=== PATIENT | female | born 1945 | race Caucasian/White ===

== ENCOUNTER 2017-01-17 14:29 | Inpatient (IN) | payer MEDICARE, OTHER ==
[2017-01-17 15:56] LABS: O2 DELIVERY DEVICE ROOM AIR; PCO2 ARTERIAL 36 mmHG (35-45); PO2 ARTERIAL 55 mmHG (80-105)
[2017-01-17 15:57] LABS: BASE EXCESS ARTERIAL -1 mmol/L (-2-3); BICARBONATE,ARTERIAL 23.7 mmol/L (22-26); O2 SATURATION ARTERIAL 89 % (95-98)
[2017-01-17] MEDS ORDERED: Sodium Chloride 0.9% 5 ML Syringe FLUSH PRN (18:26)
[2017-01-17] MEDS ORDERED: Ondansetron 4 MG/2 ML SDV IV PRN (18:26)
[2017-01-17] MEDS ORDERED: Non-Formulary Medication 1 Each (Halobetasol Propionate [Ultravate] 1 APPLIC) TP PRN (18:30)
[2017-01-17] MEDS ORDERED: Acetaminophen 500 MG Tab PO PRN (18:30)
[2017-01-17] MEDS ORDERED: Sodium Chloride 0.9% 1,000 ML IV SCH (18:30)
[2017-01-17] MEDS ORDERED: Codeine/Promethazine 10-6.25 MG/5 ML Syrup 5 ML UD Cup PO PRN (19:00)
[2017-01-17] MEDS: Albuterol/Ipratropium 3.0-0.5 MG/3 ML Neb Soln NEB SCH ×2 (19:44→20:13)
[2017-01-17] MEDS: Levofloxacin/Dextrose 5%-Water 500 MG in Premix Bag 1 BAG IV SCH (20:03)
[2017-01-17] MEDS: Amitriptyline 10 MG Tab PO SCH (20:12)
[2017-01-17] MEDS: Aspirin 81 MG Tab.EC PO SCH (20:12)
[2017-01-17] MEDS: guaiFENesin 600 MG Tab.ER PO SCH (20:12)
[2017-01-17] MEDS: Levofloxacin/Dextrose 5%-Water 250 MG in Premix Bag 1 BAG IV SCH (21:24)
[2017-01-17] MEDS ORDERED: Omeprazole 20 MG Cap.CR ONE (23:07)
[2017-01-18] MEDS: Albuterol/Ipratropium 3.0-0.5 MG/3 ML Neb Soln NEB SCH ×6 (02:32→21:16)
[2017-01-18] MEDS: Omeprazole 20 MG Cap.CR PO SCH ×2 (06:07→16:33)
[2017-01-18 07:57] LABS: CHLORIDE,CL 110 mmol/L (98-115); SODIUM,NA 146 mmol/L (136-145)
[2017-01-18] MEDS ORDERED: predniSONE 10 MG Tab PO SCH (09:00)
[2017-01-18] MEDS: Aspirin 81 MG Tab.EC PO SCH (09:22)
[2017-01-18] MEDS: buPROPion 150 MG Tab.SR PO SCH ×2 (09:22→21:12)
[2017-01-18] MEDS: Cetirizine 10 MG Tab PO SCH (09:23)
[2017-01-18] MEDS: Montelukast 10 MG Tab PO SCH (09:23)
[2017-01-18] MEDS: guaiFENesin 600 MG Tab.ER PO SCH ×2 (09:23→21:13)
[2017-01-18] MEDS: predniSONE 20 MG Tab PO SCH ×2 (09:23→21:14)
--- NOTE | 2017-01-18 11:14 | PCM.PN ---
- General Info Date of Service: 01/18/17 Functional Status: Reports: pain controlled, tolerating diet, ambulating, urinating. Denies: new symptoms - Review of Systems General: Reports: Chills. Denies: Fever HEENT: Reports: glasses. Denies: headaches Pulmonary: Reports: shortness of breath (improved), cough, sputum Cardiovascular: Reports: Dyspnea on Exertion. Denies: Chest Pain Skin: Reports: other (flushed facial cheeks) Neurological: Denies: Headache - Patient Data Vitals - most recent: Last Vital Signs Temp 98.6 F 01/18/17 06:49 Pulse 86 01/18/17 06:49 Resp 16 01/18/17 06:49 BP 116/68 01/18/17 06:49 Pulse Ox 95 01/18/17 06:49 Weight - most recent: 176 lb 4.8 oz I&O - last 24 hours: Intake & Output 01/17/17 01/18/17 01/18/17 22:59 06:59 14:59 Intake Total 891 884 Balance 891 884 Lab Results last 24 hrs: Laboratory Results - last 24 hr 01/17/17 01/17/17 01/18/17 Range/Units 15:50 18:50 07:25 WBC (5.0-10.0) 10^3/uL RBC (3.80-5.50) 10^6/uL Hgb (12.0-16.0) g/dL Hct (37.0-47.0) % MCV (82.0-92.0) fL MCH (27.0-31.0) pg MCHC (32.0-36.0) g/dL RDW (11.5-14.5) % Plt Count (150-300) 10^3/uL MPV (7.4-10.4) fL Neut % (Auto) (50.0-70.0) % Lymph % (Auto) (20.0-40.0) % Luna % (Auto) (2.0-8.0) % Eos % (Auto) (1.0-3.0) % Baso % (Auto) (0.0-1.0) % Neut # (Auto) (2.5-7.0) 10^3/uL Lymph # (Auto) (1.0-4.0) 10^3/uL Luna # (Auto) (0.1-0.8) 10^3/uL Eos # (Auto) (0.1-0.3) 10^3/uL Baso # (Auto) (0.0-0.1) 10^3/uL ABG pH 7.43 (7.35-7.45) ABG pCO2 36 (35-45) mmHG ABG pO2 55 L* (80-105) mmHG ABG HCO3 23.7 (22-26) mmol/L ABG Total CO2 25 (23-27) mmol/L ABG O2 Saturation 89 L (95-98) % ABG Base Excess -1 (-2-3) mmol/L O2 Delivery Device Room air Sodium 146 H (136-145) mmol/L Potassium 3.9 (3.3-5.3) mmol/L Chloride 110 (98-115) mmol/L Carbon Dioxide 30.0 (21.0-32.0) mmol/L BUN 11 (6-25) mg/dL Creatinine 0.69 (0.51-1.17) mg/dL Est Cr Clr Drug Dosing 67.29 mL/min Estimated GFR (MDRD) > 60 mL/min Glucose 86 (70-110) mg/dL Calcium 8.5 L (8.7-10.3) mg/dL Troponin I 0.06 (0.00-0.070) ng/mL 01/18/17 Range/Units 07:25 WBC 11.5 H (5.0-10.0) 10^3/uL RBC 4.30 (3.80-5.50) 10^6/uL Hgb 13.6 (12.0-16.0) g/dL Hct 40.4 (37.0-47.0) % MCV 94.0 H (82.0-92.0) fL MCH 31.8 H (27.0-31.0) pg MCHC 33.8 (32.0-36.0) g/dL RDW 13.1 (11.5-14.5) % Plt Count 299 (150-300) 10^3/uL MPV 7.3 L (7.4-10.4) fL Neut % (Auto) 73.7 H (50.0-70.0) % Lymph % (Auto) 18.0 L (20.0-40.0) % Luna % (Auto) 7.5 (2.0-8.0) % Eos % (Auto) 0.4 L (1.0-3.0) % Baso % (Auto) 0.4 (0.0-1.0) % Neut # (Auto) 8.5 H (2.5-7.0) 10^3/uL Lymph # (Auto) 2.1 (1.0-4.0) 10^3/uL Luna # (Auto) 0.9 H (0.1-0.8) 10^3/uL Eos # (Auto) 0.0 L (0.1-0.3) 10^3/uL Baso # (Auto) 0.0 (0.0-0.1) 10^3/uL ABG pH (7.35-7.45) ABG pCO2 (35-45) mmHG ABG pO2 (80-105) mmHG ABG HCO3 (22-26) mmol/L ABG Total CO2 (23-27) mmol/L ABG O2 Saturation (95-98) % ABG Base Excess (-2-3) mmol/L O2 Delivery Device Sodium (136-145) mmol/L Potassium (3.3-5.3) mmol/L Chloride (98-115) mmol/L Carbon Dioxide (21.0-32.0) mmol/L BUN (6-25) mg/dL Creatinine (0.51-1.17) mg/dL Est Cr Clr Drug Dosing mL/min Estimated GFR (MDRD) mL/min Glucose (70-110) mg/dL Calcium (8.7-10.3) mg/dL Troponin I (0.00-0.070) ng/mL Constantin Results last 24 hrs: Microbiology 01/17/17 15:50 Gram Stain - Final Sputum - Expectorated Sputum Culture - Preliminary No Growth 01/17/17 21:30 Influenza Type A Antigen Screen - Final Nasopharyngeal Swab - Nare, Unspecified NEGATIVE INFLUENZA A VIRUS AG Influenza Type B Antigen Screen - Final NEGATIVE INFLUENZA B VIRUS AG Med Orders - Current: Current Medications Acetaminophen (Tylenol Extra Strength) 500 mg PO DAILY PRN PRN Reason: Pain Albuterol/Ipratropium (Duoneb 3.0-0.5 Mg/3 Ml) 3 ml NEB Q4HRRT [facility] Last Admin: 01/18/17 09:21 Dose: 3 ml Amitriptyline HCl (Elavil) 10 mg PO BEDTIME [facility] Last Admin: 01/17/17 20:12 Dose: 10 mg Aspirin (Halfprin) 81 mg PO BRK [facility] Last Admin: 01/18/17 09:22 Dose: 81 mg Bupropion HCl (Wellbutrin Sr) 150 mg PO BID [facility] Last Admin: 01/18/17 09:22 Dose: 150 mg Cetirizine HCl (Zyrtec) 10 mg PO DAILY [facility] Last Admin: 01/18/17 09:23 Dose: 10 mg Guaifenesin (Mucinex) 600 mg PO BID [facility] Last Admin: 01/18/17 09:23 Dose: 600 mg Sodium Chloride (Normal Saline) 1,000 mls @ 80 mls/hr IV ASDIRECTED [facility] Last Admin: 01/17/17 20:03 Dose: 80 mls/hr Levofloxacin/Dextrose 250 mg/ (Premix) 50 mls @ 50 mls/hr IV Q24H [facility] Last Admin: 01/17/17 21:24 Dose: 50 mls/hr Levofloxacin/Dextrose 500 mg/ (Premix) 100 mls @ 100 mls/hr IV Q24H [facility] Last Admin: 01/17/17 20:03 Dose: 100 mls/hr Montelukast Sodium (Singulair) 10 mg PO DAILY [facility] Last Admin: 01/18/17 09:23 Dose: 10 mg Non-Formulary Medication (Halobetasol Propionate [Ultravate]) 1 applic TP BID PRN PRN Reason: Rash Omeprazole (Omeprazole) 40 mg PO BIDAC [facility] Last Admin: 01/18/17 06:07 Dose: 40 mg Ondansetron HCl (Zofran) 4 mg IV Q4H PRN PRN Reason: Nausea/Vomiting Prednisone (Prednisone) 40 mg PO BID [facility] Last Admin: 01/18/17 09:23 Dose: 40 mg Promethazine HCl/Codeine (Phenergan With Codeine) 5 ml PO Q4HR PRN PRN Reason: Cough Sodium Chloride (Syrex Flush) 5 ml FLUSH Q8HR PRN PRN Reason: Keep Vein Open Discontinued Medications Omeprazole (Omeprazole) Confirm Administered Dose 40 mg .ROUTE .[place]shine-MED ONE Stop: 01/17/17 23:08 Last Admin: 01/17/17 23:18 Dose: Not Given Prednisone (Prednisone) 10 mg PO DAILY JAEL - Exam Quality Assessment: supplemental oxygen (1 liter at HS), DVT prophylaxis (Score of 4-lovenox) General: alert, oriented, cooperative, no acute distress Lungs: Decreased breath sounds (throughout with expiratory wheezes to bilateral bases) Cardiovascular: Regular Rhythm, No Murmurs, Tachycardia Skin: warm, dry, other (erythematous and warm facial cheeks) Neurological: normal gait, normal speech Psy/Mental Status: alert, normal affect, normal mood - Problem List Review Problem List Initiated/Reviewed/Updated: Yes - Plan Plan:: PRIMARY ASSESSMENT/PLAN: COPD exacerbation, improving. ABGs on admission did not show any decompensation. WBC 11.5 with left shift. Chest x-ray from clinic pending. Troponin 0.06. Influenza negative. Sputum gram stain reveald gram + cocci & preliminary culture shows no growth. Continue with oral prednisone, IV levaquin , and DuoNebs. Patient requiring 1 liter of oxygen at night. Patient's home advair and spiriva on hold. Continue singulair and mucinex. Clinical dehydration, improving. Sodium 146. Decrease IVFs to 50 mL/hr. SECONDARY ASSESSMENT/PLAN: Coronary artery disease. Hypercholesterolemia. Depression. Continue wellbutrin. History of diverticulosis of large intestine. Osteoporosis. Environmental allergies. Continue zyrtec. Obstructive sleep apnea. Will get CPAP machine to hospital. GERD. Continue oral omeprazole. DVT prophylaxis. Lovenox daily. Overall plan: Continue IV levaquin, oral prednisone, and nebulizers. Continue to monitor respiratory status. The plan of care was reviewed with Dr. Garcia. He is in agreement with the plan of care.
[2017-01-18] MEDS: Enoxaparin 40 MG/0.4 ML Syringe SUBCUT SCH (11:35)
[2017-01-18] MEDS: Sodium Chloride 0.9% 1,000 ML IV SCH (11:35)
[2017-01-18] MEDS: Levofloxacin/Dextrose 5%-Water 500 MG in Premix Bag 1 BAG IV SCH (18:33)
[2017-01-18] MEDS: Amitriptyline 10 MG Tab PO SCH (21:13)
[2017-01-18] MEDS: Levofloxacin/Dextrose 5%-Water 250 MG in Premix Bag 1 BAG IV SCH (22:55)
[2017-01-19] MEDS: Albuterol/Ipratropium 3.0-0.5 MG/3 ML Neb Soln NEB SCH ×6 (01:16→22:04)
[2017-01-19] MEDS: Omeprazole 20 MG Cap.CR PO SCH ×2 (06:19→16:35)
[2017-01-19] MEDS: Sodium Chloride 0.9% 1,000 ML IV SCH (07:28)
[2017-01-19] MEDS: Aspirin 81 MG Tab.EC PO SCH (08:38)
[2017-01-19] MEDS: buPROPion 150 MG Tab.SR PO SCH ×2 (08:38→20:31)
[2017-01-19] MEDS: Montelukast 10 MG Tab PO SCH (08:38)
[2017-01-19] MEDS: Cetirizine 10 MG Tab PO SCH (08:39)
[2017-01-19] MEDS: Enoxaparin 40 MG/0.4 ML Syringe SUBCUT SCH (08:39)
[2017-01-19] MEDS: guaiFENesin 600 MG Tab.ER PO SCH ×2 (08:39→20:31)
[2017-01-19] MEDS: predniSONE 20 MG Tab PO SCH (08:39)
--- NOTE | 2017-01-19 11:21 | PCM.PN ---
- General Info Date of Service: 01/19/17 Functional Status: Reports: pain controlled, tolerating diet, ambulating, urinating. Denies: new symptoms - Review of Systems General: Denies: Fever, Chills HEENT: Denies: headaches Pulmonary: Reports: shortness of breath (improved), cough (improved), sputum ( able to bring up more) Cardiovascular: Reports: Dyspnea on Exertion (improved). Denies: Chest Pain Skin: Reports: other (facial flushing last night after levaquin dose, no itching -this has resolved today) Neurological: Denies: Headache - Patient Data Vitals - most recent: Last Vital Signs Temp 98.0 F 01/19/17 07:00 Pulse 98 01/19/17 07:00 Resp 20 01/19/17 07:00 BP 113/67 01/19/17 07:00 Pulse Ox 92 L 01/19/17 07:00 Weight - most recent: 176 lb 4.8 oz I&O - last 24 hours: Intake & Output 01/18/17 01/19/17 01/19/17 22:59 06:59 14:59 Intake Total 1012 425 50 Balance 1012 425 50 [place] Results last 24 hrs: Microbiology 01/17/17 15:50 Gram Stain - Final Sputum - Expectorated Sputum Culture - Final YEAST Med Orders - Current: Current Medications Acetaminophen (Tylenol Extra Strength) 500 mg PO DAILY PRN PRN Reason: Pain Albuterol/Ipratropium (Duoneb 3.0-0.5 Mg/3 Ml) 3 ml NEB Q6HRRT [facility] Last Admin: 01/19/17 10:50 Dose: 3 ml Amitriptyline HCl (Elavil) 10 mg PO BEDTIME [facility] Last Admin: 01/18/17 21:13 Dose: 10 mg Aspirin (Halfprin) 81 mg PO BRK [facility] Last Admin: 01/19/17 08:38 Dose: 81 mg Bupropion HCl (Wellbutrin Sr) 150 mg PO BID [facility] Last Admin: 01/19/17 08:38 Dose: 150 mg Cetirizine HCl (Zyrtec) 10 mg PO DAILY [facility] Last Admin: 01/19/17 08:39 Dose: 10 mg Enoxaparin Sodium (Lovenox) 40 mg SUBCUT DAILY [facility] Last Admin: 01/19/17 08:39 Dose: 40 mg Guaifenesin (Mucinex) 600 mg PO BID [facility] Last Admin: 01/19/17 08:39 Dose: 600 mg Levofloxacin/Dextrose 500 mg/ (Premix) 100 mls @ 100 mls/hr IV Q24H [facility] Last Admin: 01/18/17 18:33 Dose: 100 mls/hr Sodium Chloride (Normal Saline) 1,000 mls @ 50 mls/hr IV ASDIRECTED [facility] Last Admin: 01/19/17 07:28 Dose: 50 mls/hr Montelukast Sodium (Singulair) 10 mg PO DAILY [facility] Last Admin: 01/19/17 08:38 Dose: 10 mg Non-Formulary Medication (Halobetasol Propionate [Ultravate]) 1 applic TP BID PRN PRN Reason: Rash Omeprazole (Omeprazole) 40 mg PO BIDAC [facility] Last Admin: 01/19/17 06:19 Dose: 40 mg Ondansetron HCl (Zofran) 4 mg IV Q4H PRN PRN Reason: Nausea/Vomiting Prednisone (Prednisone) 40 mg PO WITHBREAKFAST [facility] Promethazine HCl/Codeine (Phenergan With Codeine) 5 ml PO Q4HR PRN PRN Reason: Cough Sodium Chloride (Syrex Flush) 5 ml FLUSH Q8HR PRN PRN Reason: Keep Vein Open Discontinued Medications Albuterol/Ipratropium (Duoneb 3.0-0.5 Mg/3 Ml) 3 ml NEB Q4HRRT [facility] Last Admin: 01/19/17 08:39 Dose: 3 ml Sodium Chloride (Normal Saline) 1,000 mls @ 80 mls/hr IV ASDIRECTED [facility] Last Admin: 01/17/17 20:03 Dose: 80 mls/hr Levofloxacin/Dextrose 250 mg/ (Premix) 50 mls @ 50 mls/hr IV Q24H [facility] Last Admin: 01/18/17 22:55 Dose: Not Given Omeprazole (Omeprazole) Confirm Administered Dose 40 mg .ROUTE .STK-MED ONE Stop: 01/17/17 23:08 Last Admin: 01/17/17 23:18 Dose: Not Given Prednisone (Prednisone) 10 mg PO DAILY [facility] Prednisone (Prednisone) 40 mg PO BID [facility] Last Admin: 01/19/17 08:39 Dose: 40 mg - Exam Quality Assessment: DVT prophylaxis (lovenox). No: supplemental oxygen General: alert, oriented, cooperative, no acute distress Lungs: Normal respiratory effort, Other (decreased breath sounds with expiratory wheezes throughout) Cardiovascular: Regular Rhythm, Tachycardia Skin: warm, dry, other (facial cheeks slight erythema) Neurological: normal speech Psy/Mental Status: alert, normal affect, normal mood. No: anxious - Problem List Review Problem List Initiated/Reviewed/Updated: Yes - My Orders Last 24 Hours: My Active Orders 01/18/17 11:15 Enoxaparin [Lovenox] 40 mg SUBCUT DAILY Sodium Chloride 0.9% [Normal Saline] 1,000 ml IV ASDIRECTED 01/19/17 09:53 RT Aerosol Therapy [RC] ASDIRECTED 01/19/17 11:00 Albuterol/Ipratropium [DuoNeb 3.0-0.5 MG/3 ML] 3 ml NEB Q6HRRT 01/20/17 08:00 predniSONE 40 mg PO WITHBREAKFAST - Plan Plan:: PRIMARY ASSESSMENT/PLAN: COPD exacerbation, improving. Chest x-ray from clinic pending. Sputum gram stain revealed gram + cocci and culture shows normal nunu and yeast. Patient experienced episode of facial flushing and warmth last night after 500 mg of IV levaquin had gone in. Held 250 mg dose. Patient denied itching or shortness of breath. This could be from levaquin or high dose prednsione. Decrease levaquin to 500 mg IV daily. Decreased oral prednisone to 40 mg daily. Decrease DuoNebs to QID. Continue singulair and mucinex. Will continue to monitor. Clinical dehydration, resolved. Discontinue IVF. SECONDARY ASSESSMENT/PLAN: Coronary artery disease. Hypercholesterolemia. Depression. Continue wellbutrin. History of diverticulosis of large intestine. Osteoporosis. Environmental allergies. Continue zyrtec. Obstructive sleep apnea. CPAP at night. GERD. Continue oral omeprazole. DVT prophylaxis. Lovenox daily. Overall plan: Decrease oral prednisone and IV levaquin to see if this improves patient's flushing symptoms, but continues to improve current condition. The plan of care was reviewed with Dr. Garcia. He is in agreement with the plan of care.
[2017-01-19] MEDS: Levofloxacin/Dextrose 5%-Water 500 MG in Premix Bag 1 BAG IV SCH (19:32)
[2017-01-19] MEDS: Amitriptyline 10 MG Tab PO SCH (20:31)
[2017-01-20] MEDS: Albuterol/Ipratropium 3.0-0.5 MG/3 ML Neb Soln NEB SCH ×2 (05:39→10:54)
[2017-01-20 06:51] VITALS: BP 114/66
[2017-01-20] MEDS: Omeprazole 20 MG Cap.CR PO SCH (06:51)
[2017-01-20] MEDS ORDERED: predniSONE 20 MG Tab PO SCH (08:00)
[2017-01-20] MEDS: Aspirin 81 MG Tab.EC PO SCH (08:37)
[2017-01-20] MEDS: Enoxaparin 40 MG/0.4 ML Syringe SUBCUT SCH (08:37)
[2017-01-20] MEDS: guaiFENesin 600 MG Tab.ER PO SCH (08:38)
[2017-01-20] MEDS: Cetirizine 10 MG Tab PO SCH (08:39)
[2017-01-20] MEDS: Montelukast 10 MG Tab PO SCH (08:39)
[2017-01-20] MEDS: buPROPion 150 MG Tab.SR PO SCH (08:39)
--- NOTE | 2017-01-21 08:43 | DISCH ---
She was admitted inpatient on 01/17 and discharged from inpatient 01/20. FINAL DIAGNOSES: 1. Chronic obstructive pulmonary disease exacerbation, much improved. 2. Hypoxia, much improved clinically. Other chronic problems: 1. Coronary artery disease. 2. Hypercholesterolemia. 3. Depression. 4. History diverticulosis. 5. Osteoporosis. 6. Environmental allergies. Obstructive sleep apnea, she is on CPAP. GERD, she is on PPI therapy. HISTORY: This patient whom I saw last week and admitted to the hospital. She had been on two rounds of antibiotics. She had failed outpatient treatment. However, she was quite short of breath and coughing quite a bit on admission, so she was admitted for COPD exacerbation and further workup. HOSPITAL COURSE: The patient stated she felt much improved within 24 hours of hospital. We discontinued her amoxicillin, started her on Levaquin. The dose was reduced due to little bit of flushing. She was given IV steroids, that dose was also tapered down due to flushing. Sputum was obtained. It revealed gram- positive cocci; however, no growth. We continued on her DuoNeb. She did require 1 L of oxygen. We held her Advair and Spiriva due to her being on her DuoNeb and IV steroids; however, we did continue on her Singulair. I added Mucinex. This helped clear her sputum. She was slightly dehydrated. We did start IV fluids that was tapered down, eventually saline lock. She never became hemodynamically unstable. She was quite euvolemic. LABORATORY DATA: White count 11.5 and neutrophils 73.7. She did have an ABG early on admission, which showed pH of 7.43, CO2 of 36, PO2 of 55, so she was not a CO2 retainer. Troponin was 0.06. She was started back on her CPAP while she was in the hospital. She had negative influenza A and B. MEDICATIONS: The patient is to start back on her Advair on Friday. Start back on her Spiriva after not needing her DuoNebs every 4 to 6 hours until Friday. By that time, she may be able to only take her DuoNebs as needed and that is when she should start back on her Spiriva. Prednisone taper medication 30 mg p.o. x2, 20 mg p.o. x2 days, then 10 mg p.o. x2 days, and then discontinue. After she gets off her nebulizer DuoNebs, she can start using her regular albuterol inhaler every 4 hours as needed. Dymista one spray each nostril b.i.d. (newly added) discontinue amoxicillin, add Levaquin 500 mg p.o. daily x5 days, newly added. Mucinex 600 mg p.o. b.i.d. DISPOSITION: The patient will be discharged from the hospital. She strongly desires to go home. She feels much better. She has had significant improvement. She will be discharged. Specific instruction is to wear a mask when she is out in [place] due to environmental allergies so as to prevent triggers, stay well hydrated, report to local emergency department while she is on vacation if she starts having fevers, increased shortness of breath, or worsening cough. FOLLOWUP CARE: The patient will follow up with myself in about 10 days. MEDICAL DECISION MAKING: Thirty-three minutes was spent on this discharge planning and process. /[id number]/MODL MTDD
== END 2017-01-20 10:35 | disposition home or self-care (01) | DRG 192 ==
LOC: MERGE 14:29 → KA.MS 14:29
PROVIDERS: ADMIT Nurse Practitioner Family; ATTEND Nurse Practitioner Family
DX: J44.1 Chronic obstructive pulmonary disease with (acute) exacerbation (principal); R09.02 Hypoxemia; E86.0 Dehydration; I25.10 Atherosclerotic heart disease of native coronary artery without angina pectoris; E78.00 Pure hypercholesterolemia, unspecified; F32.9 Major depressive disorder, single episode, unspecified; K57.90 Diverticulosis of intestine, part unspecified, without perforation or abscess without bleeding; M81.0 Age-related osteoporosis without current pathological fracture; G47.33 Obstructive sleep apnea (adult) (pediatric); K21.9 Gastro-esophageal reflux disease without esophagitis; J30.2 Other seasonal allergic rhinitis
CPT/HCPCS: 36415; 36600; 80048; 82803; 84484; 85025; 87070; 87205; 87804; 94640; A9270-GY; J1650; J1956; J7030

== ENCOUNTER 2019-06-02 12:30 | Emergency (ER) | payer MEDICARE, OTHER ==
[2019-06-02] MEDS: Sodium Chloride 0.9% 1,000 ML IV ONE ×2 (12:50→14:08)
[2019-06-02] MEDS: Ondansetron 4 MG/2 ML SDV IVPUSH ONE (12:52)
[2019-06-02 12:58] VITALS: BP 151/71; PULSE 91
[2019-06-02] MEDS ORDERED: Sodium Chloride 0.9% 10 ML Syringe FLUSH PRN (13:09)
--- NOTE | 2019-06-02 13:24 | EDM.PDOC ---
ED HPI GENERAL MEDICAL PROBLEM - General Chief Complaint: General Stated Complaint: NAUESEA/VOMITING Time Seen by Provider: 06/02/19 13:06 Source of Information: Reports: Patient, Significant Other History Limitations: Reports: No Limitations - History of Present Illness INITIAL COMMENTS - FREE TEXT/NARRATIVE: Patient presents from [facility] with profuse vomiting. Alysia Mane called me from [place] with head up. Patient says this started at 2200 last evening with first episode then she slept until around midnight and has been up with frequent vomiting for the 12 hours since then. No diarrhea but did have two normal stools during the night. She and her had supper together and she was fine then. He is asymptomatic. She has COPD and asthma. Denies any CHF. - Related Data Allergies Allergy/AdvReac Type Severity Reaction Status Date / Time hydrocodone Allergy Nausea and Verified 06/02/19 12:59 Vomiting latex Allergy Rash Verified 06/02/19 12:59 Latex, Natural Rubber Allergy Cannot Verified 06/02/19 12:59 Remember Sulfa (Sulfonamide Allergy Cannot Verified 06/02/19 12:59 Antibiotics) Remember CARDIOLYTE STRESS TEST DYE Allergy Cannot Uncoded 06/02/19 12:59 INFUSION Remember Home Meds: Home Meds Aspirin [Aruna Chewable Aspirin] 81 mg PO BEDTIME 01/31/15 [History] Multivitamin [Multivitamins] 1 tab PO DAILY 01/31/15 [History] Omeprazole 20 mg PO BIDAC 02/02/15 [History] Acetaminophen [Acetaminophen Extra Strength] 1 tab PO DAILY PRN 01/17/17 [ History] Albuterol [Ventolin HFA] 2 puff INH Q4H PRN 01/17/17 [History] Albuterol/Ipratropium [DuoNeb 3.0-0.5 MG/3 ML] 3 ml NEB Q6H PRN 01/17/17 [ History] Amitriptyline [Elavil] 10 mg PO BEDTIME 01/17/17 [History] Ca Carbonate/Vitamin D3/Vit K [Calcium + D Soft Chewable Tab] 1 tab PO DAILY 01/29 [History] Cetirizine [ZyrTEC] 10 mg PO DAILY 01/17/17 [History] Cholecalciferol (Vitamin D3) [Vitamin D3] 1 cap PO DAILY 01/17/17 [History] Gluc 2KCl/Chondr/Cari Hy/Hy Ac [Glucosamine & Chondroitin Cap] 1 each PO DAILY 01/17/17 [History] Halobetasol Propionate [Ultravate] 1 applic TP BID PRN 01/17/17 [History] Lysine 500 mg PO DAILY 01/17/17 [History] Montelukast [Singulair] 10 mg PO DAILY 01/17/17 [History] [place]-3/DHA/Epa/Fish Oil [[place] 3 500 Softgel] 1,000 mg PO BID 01/17/17 [History ] Simvastatin [Zocor] 20 mg PO BEDTIME 01/17/17 [History] Tiotropium [Spiriva HandiHaler] 1 cap INH DAILY 01/17/17 [History] Ubidecarenone [Coenzyme Q10] 100 mg PO DAILY 01/17/17 [History] Vitamin B Complex [B Complex] 1 tab PO DAILY 01/17/17 [History] buPROPion [Wellbutrin XL] 300 mg PO DAILY 01/17/17 [History] Fluticasone/Salmeterol [Advair Diskus 500-50] 1 inh PO BID 01/20/17 [History] ALPRAZolam [Alprazolam] 0.25 mg PO DAILY PRN 05/10/17 [History] Past Medical History HEENT History: Reports: Impaired Vision Cardiovascular History: Reports: CAD, IN, Stents Other Cardiovascular History: 2004 Respiratory History: Reports: COPD, Pneumonia, Recurrent, Sleep Apnea Gastrointestinal History: Reports: GERD, Hiatal Hernia Other Gastrointestinal History: hernia Genitourinary History: Reports: Renal Calculus, Retention, Urinary Musculoskeletal History: Reports: Back Pain, Chronic Neurological History: Reports: None Psychiatric History: Reports: Anxiety, Depression, Panic Attack Hematologic History: Reports: None Immunologic History: Reports: None Oncologic (Cancer) History: Reports: None Dermatologic History: Reports: Eczema - Infectious Disease History Infectious Disease History: Reports: Chicken Pox, Influenza, Measles, Mumps, Shingles - Past Surgical History Head Surgeries/Procedures: Reports: None Cardiovascular Surgical History: Reports: Coronary Artery Stent Neurological Surgical History: Reports: Other (See Below) Social & Family History - Family History Family Medical History: Noncontributory - Tobacco Use Smoking Status *Q: Former Smoker Used Tobacco, but Quit: Yes Month/Year Tobacco Last Used: quit 2003 Second Hand Smoke Exposure: No - Caffeine Use Caffeine Use: Reports: Coffee, Soda, Tea - Recreational Drug Use Recreational Drug Use: No - Living Situation & Occupation Living situation: Reports: ED ROS GENERAL - Review of Systems Review Of Systems: See Below Constitutional: Denies: Fever, Chills, Weakness HEENT: Denies: Throat Swelling, Vision Change Respiratory: Denies: Shortness of Breath, Cough Cardiovascular: Denies: Chest Pain, Lightheadedness, Syncope Endocrine: Reports: Fatigue (hardly any sleep last night) GI/Abdominal: Reports: Nausea, Vomiting. Denies: Abdominal Pain, Constipation, Diarrhea : Denies: Dysuria, Flank Pain, Frequency, Urgency Musculoskeletal: Reports: No Symptoms Skin: Denies: Cyanosis, Jaundice, Mottled, Pallor, Diaphoresis Neurological: Denies: Confusion, Dizziness, Headache, Seizure, Syncope, Trouble Speaking, Difficulty Walking Psychiatric: Denies: Agitation, Anxiety ED EXAM, GENERAL - Physical Exam Exam: See Below Exam Limited By: No Limitations General Appearance: Alert, WD/WN, No Apparent Distress Eye Exam: Bilateral Eye: EOMI, Normal Inspection, PERRL Ears: Normal External Exam, Hearing Grossly Normal Nose: Normal Inspection, No Blood Throat/Mouth: Normal Inspection, Normal Lips, Normal Voice, No Airway Compromise Head: Atraumatic, Normocephalic Neck: Normal Inspection, Supple, Non-Tender, Full Range of Motion Respiratory/Chest: No Respiratory Distress, Lungs Clear, Normal Breath Sounds, No Accessory Muscle Use Cardiovascular: Normal Peripheral Pulses, Regular Rate, Rhythm, No Murmur Peripheral Pulses: 2+: Carotid (L), Carotid (R), Radial (L), Radial (R), Dorsalis Pedis (L), Dorsalis Pedis (R) GI/Abdominal: Normal Bowel Sounds, Soft, Non-Tender, No Organomegaly, No Distention, No Abnormal Bruit, No Mass Back Exam: Normal Inspection, Full Range of Motion. No: CVA Tenderness (L), CVA Tenderness (R) Extremities: Normal Inspection, Normal Range of Motion, Non-Tender, No Pedal Edema Neurological: Alert, Oriented, Normal Cognition, No Motor/Sensory Deficits Psychiatric: Normal Affect, Normal Mood Skin Exam: Warm, Dry, Intact, Normal Color, No Rash Course - Vital Signs Last Recorded V/S: Last Vital Signs Temp 98.5 F 06/02/19 12:55 Pulse 91 06/02/19 12:55 Resp 20 06/02/19 12:55 BP 151/71 H 06/02/19 12:55 Pulse Ox 89 L 06/02/19 12:55 - Orders/Labs/Meds Orders: Active Orders 24 hr Category Date Time Status Sodium Chloride 0.9% [Saline Flush] Med 06/02/19 13:09 Active 10 ml FLUSH Q8HR PRN Saline Lock Insert [OM.PC] Routine Oth 06/02/19 13:09 Ordered Medication Orders Sodium Chloride (Saline Flush) 10 ml FLUSH Q8HR PRN PRN Reason: keep vein open Labs: Laboratory Tests 06/02/19 06/02/19 06/02/19 Range/Units 12:40 12:40 14:37 WBC 9.33 (5.00-10.00) 10^3/uL RBC 4.71 (3.80-5.50) 10^6/uL Hgb 15.3 (12.0-16.0) g/dL Hct 43.7 (37.0-47.0) % MCV 92.8 H (82.0-92.0) fL MCH 32.5 H (27.0-31.0) pg MCHC 35.0 (32.0-36.0) g/dL RDW 13.1 (11.5-14.5) % Plt Count 303 (150-400) 10^3/uL MPV 10.4 (7.4-10.4) fL Immature Gran % (Auto) 0.2 (0.0-5.0) % Neut % (Auto) 86.5 H (50.0-70.0) % Lymph % (Auto) 9.0 L (20.0-40.0) % Bell % (Auto) 4.0 (2.0-8.0) % Eos % (Auto) 0.2 L (1.0-3.0) % Baso % (Auto) 0.1 (0.0-1.0) % Immature Gran # (Auto) 0.02 (0.00-0.50) 10^3/uL Neut # (Auto) 8.07 H (2.50-7.00) 10^3/uL Lymph # (Auto) 0.84 L (1.00-4.00) 10^3/uL Bell # (Auto) 0.37 (0.10-0.80) 10^3/uL Eos # (Auto) 0.02 L (0.10-0.30) 10^3/uL Baso # (Auto) 0.01 (0.00-0.10) 10^3/uL Sodium 140 (136-145) mmol/L Potassium 3.9 (3.3-5.3) mmol/L Chloride 104 (98-115) mmol/L Carbon Dioxide 27.2 (21.0-32.0) mmol/L Anion Gap 12.7 (5-15) mmol/L BUN 15 (6-25) mg/dL Creatinine 0.42 L (0.51-1.17) mg/dL Est Cr Clr Drug Dosing 109.51 mL/min Estimated GFR (MDRD) > 60 mL/min Glucose 122 H (75 - 99) mg/dL Calcium 8.8 (8.7-10.3) mg/dL Specimen Type . Urine Color Yellow (YELLOW) Urine Appearance Clear (CLEAR) Urine pH 7.0 (5.0-9.0) Ur Specific [place] 1.015 (1.005-1.030) Urine Protein Negative (NEGATIVE) mg/dL Urine Glucose (UA) Negative (NEGATIVE) mg/dL Urine Ketones 40 H (NEGATIVE) mg/dL Urine Occult Blood Trace-intact H (NEGATIVE) Urine Nitrite Negative (NEGATIVE) Urine Bilirubin Negative (NEGATIVE) Urine Urobilinogen 0.2 (0.2-1.0) E.U./dL Ur Leukocyte Esterase Negative (NEGATIVE) Urine RBC 5-10 H (0-5) /HPF Urine WBC 0-5 (0-5) /HPF Ur Epithelial Cells Rare /LPF Urine Bacteria Rare (NONE TO FEW) /HPF Meds: Medications Generic Name Dose Route Start Last Admin Trade Name Freq PRN Reason Stop Dose Admin Sodium Chloride 10 ml 06/02/19 13:09 Saline Flush FLUSH Q8HR PRN keep vein open Discontinued Medications Generic Name Dose Route Start Last Admin Trade Name Freq PRN Reason Stop Dose Admin Sodium Chloride 1,000 mls @ 999 mls/hr 06/02/19 12:43 06/02/19 12:50 Normal Saline IV 06/02/19 13:43 999 mls/hr .BOLUS ONE Administration Sodium Chloride 1,000 mls @ 999 mls/hr 06/02/19 13:54 06/02/19 14:08 Normal Saline IV 06/02/19 14:54 999 mls/hr .BOLUS ONE Administration Ondansetron HCl 4 mg 06/02/19 12:43 06/02/19 12:52 Zofran IVPUSH 06/02/19 12:44 4 mg ONETIME ONE Administration - Re-Assessments/Exams Free Text/Narrative Re-Assessment/Exam: 06/02/19 13:55 Labs okay. Patient is feeling much better. Nausea is gone. A liter of fluids is in but she still cannot give urine sample so will start more fluids while we wait. 06/02/19 15:17 Another liter of fluids in and patient gave urine sample. UA is clear but has ketones consistent with diagnosis of dehydration. Discussed findings and treatment plan with patient and her . Discharged to home in stable condition. Departure - Departure Time of Disposition: 15:06 Disposition: Home, Self-Care 01 Condition: Good Clinical Impression: Hypovolemia dehydration Vomiting Qualifiers: Vomiting type: unspecified Vomiting Intractability: unspecified Nausea presence : with nausea Qualified Code(s): R11.2 - Nausea with vomiting, unspecified - Discharge Information Instructions: Nausea and Vomiting, Adult, [id number] Referrals: PCP,Unknown [Ordering Only Provider] - Forms: ED Department Discharge Additional Instructions: 1. Drink 8 cups of water daily. 2. Take the Zofran as directed for nausea/vomiting. 3. Follow up with your PCP if not resolving in 2 days or sooner if worsening. - My Orders Last 24 Hours: My Active Orders 06/02/19 13:09 Sodium Chloride 0.9% [Saline Flush] 10 ml FLUSH Q8HR PRN Saline Lock Insert [OM.PC] Routine - Assessment/Plan Last 24 Hours: My Active Orders 06/02/19 13:09 Sodium Chloride 0.9% [Saline Flush] 10 ml FLUSH Q8HR PRN Saline Lock Insert [OM.PC] Routine
[2019-06-02 13:34] LABS: ANION GAP 12.7 mmol/L (5-15); CHLORIDE,CL 104 mmol/L (98-115); SODIUM,NA 140 mmol/L (136-145)
== END 2019-06-02 15:20 | disposition home or self-care (01) ==
LOC: KA.ED 12:30
DX: E86.1 Hypovolemia (principal); E86.0 Dehydration; I25.2 Old myocardial infarction; I25.10 Atherosclerotic heart disease of native coronary artery without angina pectoris; K21.9 Gastro-esophageal reflux disease without esophagitis; F41.9 Anxiety disorder, unspecified; F32.9 Major depressive disorder, single episode, unspecified; Z79.82 Long term (current) use of aspirin; Z95.5 Presence of coronary angioplasty implant and graft; Z79.899 Other long term (current) drug therapy; Z91.040 Latex allergy status; Z88.2 Allergy status to sulfonamides; Z88.6 Allergy status to analgesic agent; Z87.891 Personal history of nicotine dependence
CPT/HCPCS: 36415; 80048; 81001; 85025; 96361; 96374; 99284; 99284-25; J2405; J7030

== ENCOUNTER 2022-06-02 18:30 | Emergency (ER) | payer MEDICARE, OTHER ==
[2022-06-02 18:55] VITALS: BP 152/75
[2022-06-02] MEDS ORDERED: Albuterol/Ipratropium 3.0-0.5 MG/3 ML Neb Soln NEB ONE (19:05)
[2022-06-02 19:41] LABS: ANION GAP 10.2 mmol/L (5-15); CHLORIDE,CL 102 mmol/L (98-107); SODIUM,NA 138 mmol/L (136-145)
[2022-06-02 19:42] LABS: ESTIMATED GFR 93 mL/min (>=60)
[2022-06-02 19:50] VITALS: PULSE 97
[2022-06-02 19:55] LABS: RESPIRATORY SYNCYTIAL VIR NAA NEGATIVE (NEGATIVE)
[2022-06-02 19:58] LABS: CORONAVIRUS COVID-19 NAA POSITIVE (NEGATIVE)
[2022-06-02] MEDS ORDERED: Nirmatrelvir/Ritonavir 150 MG/100 MG Dose Pack PO SCH (21:00)
== END 2022-06-02 21:10 | disposition home or self-care (01) ==
LOC: KA.ED 18:30
DX: U07.1 COVID-19 (principal); I25.10 Atherosclerotic heart disease of native coronary artery without angina pectoris; I25.2 Old myocardial infarction; J44.9 Chronic obstructive pulmonary disease, unspecified; K21.9 Gastro-esophageal reflux disease without esophagitis; Z87.891 Personal history of nicotine dependence; Z88.5 Allergy status to narcotic agent; Z91.040 Latex allergy status; Z88.2 Allergy status to sulfonamides; Z88.8 Allergy status to other drugs, medicaments and biological substances; Z79.82 Long term (current) use of aspirin; Z79.899 Other long term (current) drug therapy
CPT/HCPCS: 0241U; 36415; 71046; 80053; 85025; 94640; 99284; 99285; A9270-GY; J7620-GY

== ENCOUNTER 2023-01-20 10:16 | Emergency (ER) | payer MEDICARE, OTHER ==
[2023-01-20] MEDS ORDERED: Sodium Chloride 0.9% 10 ML Syringe FLUSH PRN (10:25)
[2023-01-20 10:43] LABS: BASOPHILS ABSOLUTE AUTO 0.02 10^3/uL (0.00-0.10); BASOPHILS PERCENT AUTO 0.4 % (0.0-1.0); EOSINOPHILS ABSOLUTE AUTO 0.05 10^3/uL (0.10-0.30); EOSINOPHILS PERCENT AUTO 1.1 % (1.0-3.0); HEMATOCRIT 41.5 % (37.0-47.0); HEMOGLOBIN 13.7 g/dL (12.0-16.0); IMMATURE GRAN ABSOLUTE AUTO 0.01 10^3/uL (0.00-0.50); IMMATURE GRAN PERCENT AUTO 0.2 % (0.0-5.0); LYMPHOCYTES ABSOLUTE AUTO 0.58 10^3/uL (1.00-4.00); LYMPHOCYTES PERCENT AUTO 12.6 % (20.0-40.0); MEAN CORPUSCULAR HEMOGLOBIN 31.2 pg (27.0-31.0); MEAN CORPUSCULAR VOLUME 94.5 fL (82.0-92.0); MEAN PLATELET VOLUME 8.7 fL (7.4-10.4); MONOCYTES ABSOLUTE AUTO 0.55 10^3/uL (0.10-0.80); NEUTROPHILS ABSOLUTE AUTO 3.38 10^3/uL (2.50-7.00); NEUTROPHILS PERCENT AUTO 73.7 % (50.0-70.0); PLATELET COUNT,PLT 221 10^3/uL (150-400); RED BLOOD CELL COUNT 4.39 10^6/uL (3.80-5.50); RED CELL DISTRIBUTION WIDTH 13.7 % (11.5-14.5); WHITE BLOOD CELL COUNT,WBC 4.59 10^3/uL (5.00-10.00)
[2023-01-20 11:06] LABS: ALBUMIN 3.51 g/dL (3.40-5.00); ANION GAP 10.5 mmol/L (5-15); BILIRUBIN TOTAL 0.4 mg/dL (0.2-1.0); CALCIUM 8.3 mg/dL (8.7-10.3); CARBON DIOXIDE,CO2 29.1 mmol/L (21.0-32.0); CREATININE 0.52 mg/dL (0.51-1.17); EST CRCL DRUG DOSING (CG) 81.53 mL/min; LACTIC ACID 0.8 mmol/L (0.4-2.0); POTASSIUM,K 3.6 mmol/L (3.5-5.1); PROTEIN TOTAL,TP 6.7 g/dL (6.4-8.2)
[2023-01-20 11:30] LABS: INFLUENZA A NAA POSITIVE (NEGATIVE); INFLUENZA B NAA NEGATIVE (NEGATIVE); RESPIRATORY SYNCYTIAL VIR NAA NEGATIVE (NEGATIVE)
[2023-01-20 11:41] LABS: APPEARANCE,URINE CLEAR (CLEAR); BILIRUBIN,URINE NEGATIVE (NEGATIVE); COLOR,URINE YELLOW (YELLOW); GLUCOSE,URINE NEGATIVE (NEGATIVE); KETONES,URINE 15 mg/dL (NEGATIVE); LEUKOCYTE ESTERASE,URINE NEGATIVE (NEGATIVE); NITRITE,URINE NEGATIVE (NEGATIVE); OCCULT BLOOD,URINE TRACE-LYSED (NEGATIVE); PH,URINE 6.5 (5.0-9.0); PROTEIN,URINE NEGATIVE (NEGATIVE); UROBILINOGEN,URINE 0.2 E.U./dL (0.2-1.0)
[2023-01-20 11:43] LABS: CORONAVIRUS COVID-19 NAA NEGATIVE (NEGATIVE)
[2023-01-20 12:04] LABS: BACTERIA,URINE FEW /HPF (NONE TO FEW); WBC,URINE 0-5 /HPF (0-5)
[2023-01-20 12:05] LABS: EPITHELIAL CELLS,URINE FEW /LPF
[2023-01-20 12:35] VITALS: BP 135/89; PULSE 102
== END 2023-01-20 12:45 | disposition home or self-care (01) ==
LOC: KA.ED 10:16
DX: J10.1 Influenza due to other identified influenza virus with other respiratory manifestations (principal); I25.10 Atherosclerotic heart disease of native coronary artery without angina pectoris; I25.2 Old myocardial infarction; J44.9 Chronic obstructive pulmonary disease, unspecified; Z86.16 Personal history of COVID-19; Z88.5 Allergy status to narcotic agent; Z88.8 Allergy status to other drugs, medicaments and biological substances; Z91.040 Latex allergy status; Z88.2 Allergy status to sulfonamides; Z79.82 Long term (current) use of aspirin; Z79.899 Other long term (current) drug therapy; Z20.822 Contact with and (suspected) exposure to COVID-19
CPT/HCPCS: 0241U; 71045; 80053; 81001; 83605; 83880; 84484; 85025; 85379; 93005; 93010; 99284; 99285